=== PATIENT | female | born 1935 | race Hispanic/Latino ===

== ENCOUNTER 2017-11-24 20:56 | Inpatient (IN) | payer MEDICARE ==
[~2017-11-24] VITALS: Ht 144.8 cm; Wt 80.5 kg
[~2017-11-24 20:56] MED LIST: ASPI-1012 PO; CLOP75TA14 PO; ESOM20CA39 PO; SIMV40TA59 PO
[2017-11-24 21:30] LABS: APPEARANCE,URINE Cloudy (CLEAR); BILIRUBIN,URINE Negative (NEGATIVE); COLOR,URINE Yellow (YELLOW); GLUCOSE, URINE (UA) TRACE mg/dL (NEGATIVE); KETONES,URINE Trace mg/dL (NEGATIVE); LEUKOCYTE ESTERASE ,URINE Small (NEGATIVE); NITRATE,URINE Negative (NEGATIVE); OCCULT BLOOD,URINE Negative (NEGATIVE); PROTEIN,URINE Negative (NEGATIVE); UROBILINOGEN,URINE 0.2 mg/dL (0.2-1.0)
[2017-11-24 21:30] LABS: RAPID GROUP A STREP NEGATIVE (NEGATIVE)
[2017-11-24] MEDS ORDERED: SODIUM CHLORIDE 0.9% 500ML 500 ML IV ONE (21:32)
[2017-11-24 21:45] LABS: INR 0.94 (0.85-1.15); PARTIAL THROMBOPLASTIN TIME 29.3 SEC (26.3-35.5); PROTHROMBIN TIME 9.9 SEC (9.6-11.6)
[2017-11-24 21:50] LABS: BASOPHILS % (AUTO) 0.5 % (0.0-5.0); CREATININE 0.9 mg/dL (0.5-1.5); EOSINOPHILS % (AUTO) 0.9 % (0.0-8.0); HEMATOCRIT 39.7 % (36-48); LYMPHOCYTES % (AUTO) 16.7 % (21.0-51.0); MEAN CORPUSCULAR HEMOGLOBIN 29.4 pg (27.0-33.0); MEAN CORPUSCULAR VOLUME 89.1 fL (79-99); MONOCYTES % (AUTO) 5.6 % (3.0-13.0); NEUTROPHILS % (AUTO) 76.3 % (40.0-77.0); PLATELET COUNT (AUTO) 236 K/uL (130-400); POTASSIUM 3.6 mmol/L (3.5-5.1); RED BLOOD CELL COUNT(AUTO) 4.46 MIL/uL (4.00-5.50); RED CELL DISTRIBUTION WIDTH 14.8 % (11.0-15.5); WHITE BLOOD COUNT (AUTO) 9.4 K/uL (4.8-10.8)
[2017-11-24 21:54] LABS: ALBUMIN 3.9 g/dL (3.5-5.0); BILIRUBIN,TOTAL 0.3 mg/dL (0.2-1.0)
[2017-11-24 21:55] LABS: RBC,URINE None Seen /HPF (0-1)
[2017-11-24 21:56] LABS: AMORPHOUS SEDIMENT,UR Few /LPF (None Seen); BACTERIA,URINE Few /HPF (None Seen)
[2017-11-24 22:10] LABS: B-TYPE NATRIURETIC PEPTIDE 243 pg/mL (0-100)
[2017-11-24] MEDS ORDERED: AZITHROMYCIN 500MG+NS 250ML 250 ML IV ONE (23:00)
[2017-11-24] MEDS ORDERED: MEROPENEM 1 GM VIAL ONE (23:00)
[2017-11-24 23:13] LABS: ABG BASE EXCESS -0.5 mmol/L (-2.0-3.0); ABG HCO3 25.3 mmol/L (21.0-28.0); ABG OXYGEN SATURATION 93.1 % (95.0-99.0); ABG PCO2 46 mmHg (32-45)
[2017-11-25] VITALS (17 sets, daily range): BP systolic 97–151; BP diastolic 30–73
[2017-11-25] MEDS ORDERED: SODIUM CHLORIDE 0.9% 1000ML 1,000 ML IV SCH (04:45)
[2017-11-25] MEDS ORDERED: ONDANSETRON HCL MDV 20ML 2 MG/ML VIAL IVP PRN (04:45)
[2017-11-25] MEDS ORDERED: HYDRALAZINE HCL 20 MG/ML VIAL IV PRN (04:45)
[2017-11-25] MEDS ORDERED: CEFEPIME 2GM+NS 100ML 100 ML IV SCH (04:45)
[2017-11-25 05:56] LABS: HEMATOCRIT 40.1 % (36-48); MEAN CORPUSCULAR HEMOGLOBIN 29.7 pg (27.0-33.0); MEAN CORPUSCULAR HGB CONC 33.3 g/dL (32.0-36.0); MEAN CORPUSCULAR VOLUME 89.1 fL (79-99); PLATELET COUNT (AUTO) 222 K/uL (130-400); RED BLOOD CELL COUNT(AUTO) 4.51 MIL/uL (4.00-5.50); RED CELL DISTRIBUTION WIDTH 14.4 % (11.0-15.5); WHITE BLOOD COUNT (AUTO) 11.4 K/uL (4.8-10.8)
[2017-11-25] MEDS ORDERED: ASPI-555 PO (05:56)
[2017-11-25] MEDS ORDERED: ACETAMINOPHEN 650 MG SUPPOSITORY RC PRN ×2 (06:00→21:00)
[2017-11-25] MEDS ORDERED: DICLOFENAC SODIUM TP PRN (06:00)
[2017-11-25] MEDS ORDERED: APPL TP PRN (06:00)
[2017-11-25] MEDS ORDERED: ACETAMINOPHEN 325 MG TAB PO PRN (06:00)
[2017-11-25] MEDS ORDERED: ACET650S14 RC (06:03)
[2017-11-25] MEDS ORDERED: DICL2100G TP (06:03)
[2017-11-25] MEDS ORDERED: TYLENOL ARTHRITIS PO (06:03)
[2017-11-25 06:05] LABS: INR 0.93 (0.85-1.15); PROTHROMBIN TIME 9.8 SEC (9.6-11.6)
[2017-11-25 06:10] LABS: CREATININE 0.7 mg/dL (0.5-1.5); HEMOGLOBIN A1C 5.7 % (4.0-6.0); POTASSIUM 3.9 mmol/L (3.5-5.1)
[2017-11-25] MEDS: DOXYCYCLINE 100MG+NS 250ML 250 ML IV SCH ×2 (06:54→18:24)
[2017-11-25] MEDS ORDERED: CLOPIDOGREL BISULFATE 75 MG TAB PO SCH (09:00)
[2017-11-25] MEDS: FAMOTIDINE/PF 20 MG/2 ML VIAL IV SCH ×2 (09:00→21:00)
[2017-11-25] MEDS ORDERED: NICARDIPINE HCL 100 MG in SODIUM CHLORIDE 0.9% 60 ML IV PRN (12:00)
[2017-11-25] MEDS ORDERED: HYDRALAZINE HCL 20 MG/ML VIAL IM PRN (12:00)
[2017-11-25] MEDS ORDERED: IPRATROPIUM/ALBUTEROL SULFATE 3 ML SOLUTION IH PRN (14:00)
[2017-11-25] MEDS ORDERED: LIDOCAINE HCL-MPF 1% 2ML VIAL IVP PRN (14:00)
[2017-11-25] MEDS ORDERED: POTASSIUM CHLORIDE 10% ELIXIR 20 MEQ/15 ML UDCUP PO PRN (14:00)
[2017-11-25] MEDS ORDERED: POTASSIUM CHLORIDE 20 MEQ ERTAB PO PRN (14:00)
[2017-11-25] MEDS: SODIUM CHLORIDE 3% 500 ML SIVP SCH (14:46)
[2017-11-25] MEDS ORDERED: CEFEPIME HCL 2 GM VIAL IVP ONE (15:00)
[2017-11-25] MEDS: IPRATROPIUM/ALBUTEROL SULFATE 3 ML SOLUTION IH SCH ×3 (17:19→23:13)
[2017-11-25] MEDS ORDERED: CEFEPIME 1GM+NS 50ML 50 ML IV SCH (21:00)
[2017-11-25] MEDS: CEFEPIME HCL 1 GM VIAL IVP SCH ×2 (21:31→21:35)
[2017-11-25 23:20] LABS: APPEARANCE,URINE Clear (CLEAR); BILIRUBIN,URINE Negative (NEGATIVE); COLOR,URINE Yellow (YELLOW); GLUCOSE, URINE (UA) Negative (NEGATIVE); KETONES,URINE Trace mg/dL (NEGATIVE); LEUKOCYTE ESTERASE ,URINE Small (NEGATIVE); NITRATE,URINE Negative (NEGATIVE); OCCULT BLOOD,URINE Negative (NEGATIVE); PROTEIN,URINE Trace (NEGATIVE); UROBILINOGEN,URINE 0.2 mg/dL (0.2-1.0)
[2017-11-25 23:21] LABS: BACTERIA,URINE Rare /HPF (None Seen); MUCUS,URINE Few LPF (None Seen); RBC,URINE None Seen /HPF (0-1); SQUAMOUS EPITHELIAL CELL,UR Rare /HPF (0-2)
[2017-11-26] VITALS (23 sets, daily range): BP systolic 101–159; BP diastolic 36–85
[2017-11-26] MEDS ORDERED: SODIUM CHLORIDE 3% FOR INHALATION 4 ML/AMP VIAL.NEB IH ONE ×3 (01:50→11:34)
[2017-11-26] MEDS: SODIUM CHLORIDE 3% 500 ML SIVP SCH (03:34)
[2017-11-26 03:53] LABS: HEMATOCRIT 38.7 % (36-48); MEAN CORPUSCULAR HEMOGLOBIN 29.1 pg (27.0-33.0); MEAN CORPUSCULAR HGB CONC 33.3 g/dL (32.0-36.0); MEAN CORPUSCULAR VOLUME 87.3 fL (79-99); PLATELET COUNT (AUTO) 223 K/uL (130-400); RED BLOOD CELL COUNT(AUTO) 4.43 MIL/uL (4.00-5.50); RED CELL DISTRIBUTION WIDTH 14.6 % (11.0-15.5); WHITE BLOOD COUNT (AUTO) 18.4 K/uL (4.8-10.8)
[2017-11-26 04:03] LABS: POTASSIUM 3.4 mmol/L (3.5-5.1)
[2017-11-26] MEDS: DOXYCYCLINE 100MG+NS 250ML 250 ML IV SCH ×2 (06:04→18:01)
[2017-11-26] MEDS: IPRATROPIUM/ALBUTEROL SULFATE 3 ML SOLUTION IH SCH ×3 (06:21→19:20)
[2017-11-26] MEDS: PANTOPRAZOLE 40 MG/VIAL IV SCH ×2 (09:00→20:39)
[2017-11-26] MEDS: CEFEPIME HCL 1 GM VIAL IVP SCH ×2 (09:36→20:38)
[2017-11-26] MEDS: POTASSIUM CHLORIDE 20MEQ/100ML 100 ML IV PRN (11:46)
[2017-11-27] VITALS (17 sets, daily range): BP systolic 108–139; BP diastolic 37–80
[2017-11-27] MEDS: IPRATROPIUM/ALBUTEROL SULFATE 3 ML SOLUTION IH SCH ×4 (00:32→19:02)
[2017-11-27] MEDS: SODIUM CHLORIDE 3% 500 ML SIVP SCH ×3 (01:57→23:12)
[2017-11-27 03:43] LABS: BASOPHILS % (AUTO) 0.3 % (0.0-5.0); EOSINOPHILS % (AUTO) 0.3 % (0.0-8.0); HEMATOCRIT 34.5 % (36-48); LYMPHOCYTES % (AUTO) 6.1 % (21.0-51.0); MEAN CORPUSCULAR HEMOGLOBIN 29.7 pg (27.0-33.0); MEAN CORPUSCULAR HGB CONC 33.6 g/dL (32.0-36.0); MEAN CORPUSCULAR VOLUME 88.3 fL (79-99); MONOCYTES % (AUTO) 8.9 % (3.0-13.0); NEUTROPHILS % (AUTO) 84.4 % (40.0-77.0); PLATELET COUNT (AUTO) 174 K/uL (130-400); RED BLOOD CELL COUNT(AUTO) 3.91 MIL/uL (4.00-5.50); RED CELL DISTRIBUTION WIDTH 14.7 % (11.0-15.5); WHITE BLOOD COUNT (AUTO) 15.6 K/uL (4.8-10.8)
[2017-11-27 03:51] LABS: CREATININE 0.6 mg/dL (0.5-1.5); POTASSIUM 3.2 mmol/L (3.5-5.1)
[2017-11-27] MEDS: POTASSIUM CHLORIDE 20MEQ/100ML 100 ML IV PRN (03:58)
[2017-11-27] MEDS: DOXYCYCLINE 100MG+NS 250ML 250 ML IV SCH ×2 (05:33→18:06)
[2017-11-27] MEDS: PANTOPRAZOLE 40 MG/VIAL IV SCH ×2 (09:35→20:15)
[2017-11-27] MEDS: CEFEPIME HCL 1 GM VIAL IVP SCH ×2 (09:35→20:15)
[2017-11-28] MEDS: IPRATROPIUM/ALBUTEROL SULFATE 3 ML SOLUTION IH SCH ×2 (00:38→06:35)
[2017-11-28 03:29] VITALS: BP 110/47
[2017-11-28 03:44] LABS: BASOPHILS % (AUTO) 0.5 % (0.0-5.0); EOSINOPHILS % (AUTO) 1.5 % (0.0-8.0); HEMATOCRIT 34.5 % (36-48); LYMPHOCYTES % (AUTO) 9.9 % (21.0-51.0); MEAN CORPUSCULAR HEMOGLOBIN 28.5 pg (27.0-33.0); MEAN CORPUSCULAR HGB CONC 32.6 g/dL (32.0-36.0); MEAN CORPUSCULAR VOLUME 87.6 fL (79-99); MONOCYTES % (AUTO) 8.9 % (3.0-13.0); NEUTROPHILS % (AUTO) 79.2 % (40.0-77.0); PLATELET COUNT (AUTO) 166 K/uL (130-400); RED BLOOD CELL COUNT(AUTO) 3.94 MIL/uL (4.00-5.50); RED CELL DISTRIBUTION WIDTH 14.7 % (11.0-15.5); WHITE BLOOD COUNT (AUTO) 14.5 K/uL (4.8-10.8)
[2017-11-28 03:57] LABS: CREATININE 0.7 mg/dL (0.5-1.5); POTASSIUM 3.3 mmol/L (3.5-5.1)
[2017-11-28] MEDS: POTASSIUM CHLORIDE 20MEQ/100ML 100 ML IV PRN ×2 (05:06→09:10)
[2017-11-28] MEDS: DOXYCYCLINE 100MG+NS 250ML 250 ML IV SCH ×2 (05:34→18:11)
[2017-11-28 07:54] VITALS: BP 130/87
[2017-11-28] MEDS: CEFEPIME HCL 1 GM VIAL IVP SCH ×2 (09:10→21:57)
[2017-11-28] MEDS: PANTOPRAZOLE 40 MG/VIAL IV SCH (09:10)
[2017-11-28 11:30] VITALS: BP 136/63
[2017-11-28 16:00] VITALS: BP 127/67
[2017-11-28 19:27] VITALS: BP 127/68
[2017-11-28] MEDS: IPRATROPIUM/ALBUTEROL SULFATE 3 ML SOLUTION IH PRN (19:38)
[2017-11-28 23:50] VITALS: BP 125/43
[2017-11-29] MEDS: IPRATROPIUM/ALBUTEROL SULFATE 3 ML SOLUTION IH PRN ×3 (00:51→11:07)
[2017-11-29 04:09] VITALS: BP 112/54
[2017-11-29] MEDS: DOXYCYCLINE 100MG+NS 250ML 250 ML IV SCH (05:46)
[2017-11-29 07:00] VITALS: BP 109/51
[2017-11-29] MEDS ORDERED: PANTOPRAZOLE SODIUM 40 MG TABLET.DR PO SCH (07:30)
[2017-11-29 11:00] VITALS: BP 115/63
[2017-11-29] MEDS ORDERED: DOXYCYCLINE HYCLATE 100 MG TABLET PO SCH (21:00)
== END 2017-11-29 16:15 | DRG 64 ==
LOC: EDH 20:56 → EDHIP 11-25 02:20 → 2AH 11-25 03:10 → 2BH 11-25 11:35 → 2AH 11-28 11:28
PROVIDERS: ADMIT Internal Medicine Nephrology; ATTEND Internal Medicine Nephrology
DX: I62.9 Nontraumatic intracranial hemorrhage, unspecified (principal); J18.9 Pneumonia, unspecified organism; I63.9 Cerebral infarction, unspecified; G93.6 Cerebral edema; J18.1 Lobar pneumonia, unspecified organism; E46 Unspecified protein-calorie malnutrition; I11.0 Hypertensive heart disease with heart failure; L03.115 Cellulitis of right lower limb; R13.12 Dysphagia, oropharyngeal phase; I50.9 Heart failure, unspecified; L03.116 Cellulitis of left lower limb; N39.0 Urinary tract infection, site not specified; F03.90 Unspecified dementia, unspecified severity, without behavioral disturbance, psychotic disturbance, mood disturbance, and anxiety; Z66 Do not resuscitate; R27.0 Ataxia, unspecified; I25.10 Atherosclerotic heart disease of native coronary artery without angina pectoris; Y95 Nosocomial condition; I61.4 Nontraumatic intracerebral hemorrhage in cerebellum; I25.2 Old myocardial infarction; Z95.5 Presence of coronary angioplasty implant and graft; Z68.38 Body mass index [BMI] 38.0-38.9, adult; Z74.01 Bed confinement status
CPT/HCPCS: 36415; 36600; 70450; 70551; 71045; 80048; 80053; 80061; 80339; 81001; 82803; 82948; 83036; 83605; 83690; 83880; 84132; 84295; 84484; 85025; 85027; 85610; 85730; 87040; 87071; 87088; 87205; 87804; 87880; 92610; 93306; 93970; 94640; 94664; 99291; A4218; C9113; J0456; J0692; J2185; J3480; J3490; J7030; J7040

== ENCOUNTER 2019-04-09 21:22 | Emergency (ER) | payer MEDICARE ==
[~2019-04-09 21:22] MED LIST changes: +ACET650S14 RC; -ASPI-1012 PO; -CLOP75TA14 PO; +DICL2100G TP; -ESOM20CA39 PO; -SIMV40TA59 PO
[2019-04-09 22:18] LABS: BASOPHILS % (AUTO) 0.9 % (0.0-5.0); EOSINOPHILS % (AUTO) 3.1 % (0.0-8.0); HEMATOCRIT 31.5 % (36-48); LYMPHOCYTES % (AUTO) 19.5 % (21.0-51.0); MEAN CORPUSCULAR HEMOGLOBIN 29.6 pg (27.0-33.0); MEAN CORPUSCULAR HGB CONC 32.7 g/dL (32.0-36.0); MEAN CORPUSCULAR VOLUME 90.5 fL (79-99); MONOCYTES % (AUTO) 10.1 % (3.0-13.0); NEUTROPHILS % (AUTO) 66.4 % (40.0-77.0); NUCLEATED RED BLOOD CELLS 0.2 % (0.0-0.19); PLATELET COUNT (AUTO) 219 K/uL (130-400); RED BLOOD CELL COUNT(AUTO) 3.48 MIL/uL (4.00-5.50); RED CELL DISTRIBUTION WIDTH 14.7 % (11.0-15.5); WHITE BLOOD COUNT (AUTO) 8.4 K/uL (4.8-10.8)
[2019-04-09 22:28] LABS: INR 0.89 (0.85-1.15); PARTIAL THROMBOPLASTIN TIME 28.9 SEC (26.3-35.5); PROTHROMBIN TIME 9.4 SEC (9.6-11.6)
[2019-04-09 22:30] LABS: CREATININE 0.7 mg/dL (0.5-1.5); POTASSIUM 4.1 mmol/L (3.5-5.1)
[2019-04-09 22:35] LABS: ALBUMIN 2.7 g/dL (3.5-5.0); BILIRUBIN,TOTAL 0.8 mg/dL (0.2-1.0); TOTAL PROTEIN, SERUM 6.5 g/dL (6.0-8.3)
[2019-04-09 23:27] LABS: APPEARANCE,URINE Cloudy (CLEAR); BILIRUBIN,URINE Negative (NEGATIVE); COLOR,URINE Yellow (YELLOW); GLUCOSE, URINE (UA) Negative (NEGATIVE); KETONES,URINE Negative (NEGATIVE); LEUKOCYTE ESTERASE ,URINE Trace (NEGATIVE); NITRATE,URINE Negative (NEGATIVE); OCCULT BLOOD,URINE Negative (NEGATIVE); PH,URINE 7.5 (5.0-8.0); PROTEIN,URINE Negative (NEGATIVE)
[2019-04-09 23:37] LABS: BACTERIA,URINE None Seen /HPF (None Seen); RBC,URINE None Seen /HPF (0-1); WBC,URINE 0-1 /HPF (0-1)
[2019-04-09 23:38] LABS: AMORPHOUS SEDIMENT,UR Rare /LPF (None Seen); SQUAMOUS EPITHELIAL CELL,UR Few /HPF (0-2)
[2019-04-13] MEDS ORDERED: CLOT15CR62 TP (02:34)
[2019-04-13] MEDS ORDERED: RANI-643 PO (02:34)
== END 2019-04-10 02:12 | disposition home or self-care (01) ==
LOC: EDH 21:22
DX: S42.291A Other displaced fracture of upper end of right humerus, initial encounter for closed fracture (principal); I10 Essential (primary) hypertension; E78.5 Hyperlipidemia, unspecified; K21.9 Gastro-esophageal reflux disease without esophagitis; Z79.899 Other long term (current) drug therapy; W18.39XA Other fall on same level, initial encounter; Y93.89 Activity, other specified; Y92.89 Other specified places as the place of occurrence of the external cause; Y99.8 Other external cause status
CPT/HCPCS: 36415; 70450; 73020; 73060; 73090; 80053; 81001; 82550; 83690; 84484; 85025; 85610; 85730; 93005

== ENCOUNTER 2019-05-17 07:33 | Day surgery (SDC) | payer MEDICARE ==
[2019-05-15 10:11] VITALS: BP 118/74
[2019-05-15 10:29] LABS: BASOPHILS % (AUTO) 0.9 % (0.0-5.0); EOSINOPHILS % (AUTO) 3.2 % (0.0-8.0); HEMATOCRIT 39.4 % (36-48); LYMPHOCYTES % (AUTO) 28.8 % (21.0-51.0); MEAN CORPUSCULAR HEMOGLOBIN 29.7 pg (27.0-33.0); MEAN CORPUSCULAR HGB CONC 32.5 g/dL (32.0-36.0); MEAN CORPUSCULAR VOLUME 91.5 fL (79-99); MONOCYTES % (AUTO) 11.2 % (3.0-13.0); NEUTROPHILS % (AUTO) 55.9 % (40.0-77.0); NUCLEATED RED BLOOD CELLS 0.1 % (0.0-0.19); PLATELET COUNT (AUTO) 260 K/uL (130-400); RED BLOOD CELL COUNT(AUTO) 4.31 MIL/uL (4.00-5.50); RED CELL DISTRIBUTION WIDTH 16.2 % (11.0-15.5)
[2019-05-15 10:31] LABS: CREATININE 0.9 mg/dL (0.5-1.5); POTASSIUM 4.2 mmol/L (3.5-5.1)
[2019-05-15 10:35] LABS: INR 1.01 (0.85-1.15); PARTIAL THROMBOPLASTIN TIME 35.1 SEC (26.3-35.5); PROTHROMBIN TIME 10.6 SEC (9.6-11.6)
--- NOTE | 2019-05-15 11:55 | NUR ---
CALLED [facility] AND SPOKE WITH PATIENT'S NURSE (RUDOLPH MENDOZA LVN). INFORMED HER THAT PATIENT WILL ONLY NEED TO TAKE ELIQUIS, AMIODARONE, AND LASIX ON THE MORNING OF HER PROCEDURE. NURSE VERBALIZED UNDERSTANDING.
[2019-05-17] VITALS (19 sets, daily range): BP systolic 94–120; BP diastolic 38–68
[~2019-05-17 07:33] MED LIST changes: +ACET325T51 PO; -ACET650S14 RC; +AMIO200T5 PO; +APIX5TAB PO; +ASCO500C18 PO; +BALS60OI TP; +CLOT15CR62 TP; +DOCU100C33 PO; +FERR324T10 PO; +FURO40TA7 PO; +HYDR-2132 PO; +NYST100P2 MC; +NYST1POW4 MC; +POTA-79 PO; +RANI-643 PO; +SODIUM CHLORIDE 0.9% 1000ML 1,000 ML IV SCH
--- NOTE | 2019-05-17 07:40 | NUR ---
PRE-PROCEDURE RECEIVED FROM [facility] VIA W/C AWAKE IN NO ACUTE DISTRESS TO ROOM 15 FOR SCHEDULED LHC ACCOMPANIED BY SON. CONNECTED TO CONTINUOUS CARDIOPULMONARY MONITORING. HX: DEMENTIA. PT WITH MEPILEX DRESSING TO RIGHT FOOT. PER SON PT HIT HER FOOT. QUARTER SIZE CLOSED WOUND TO RIGHT FOOT W/O DRAINAGE AT PRESENT TIME. PER SON PT FELL AND FX RIGHT ARM A COUPLE WEEKS AGO AND HAD SURGERY BY DR. PLUMMER. PTS RIGHT ARM IN SLING. HEALED INCISION TO RIGHT SHOULDER EXTENDING TO PROXIMAL RIGHT ARM. EDUCATED TO CALL FOR ASSISTANCE TO GET OUT OF BED. SIDE RAILS UP X2, BED IN LOWEST POSITION, AND CALL LIGHT W/IN REACH.
--- NOTE | 2019-05-17 07:42 | NUR ---
ORDERS EKG COMPLETED ORDERED.
--- NOTE | 2019-05-17 09:24 | NUR ---
EDUCATION DR. JAMES DISCUSSED PLAN W/ PT AND SON AT BEDSIDE. SON VERBALIZED UNDERSTANDING.
[2019-05-17] MEDS ORDERED: PROPOFOL 10 MG/ML 20ML VIAL IV ONE (09:27)
--- NOTE | 2019-05-17 09:29 | NUR ---
PROCEDURE DR. JAMES, Mathieu MARIO, Chely HENRY, AND Lloyd SCHROEDER AT BEDSIDE FOR SCHEDULED CARDIOVERSION W/ ANESTHESIA. TIME OUT CALLED.
--- NOTE | 2019-05-17 09:38 | NUR ---
POST-PROCEDURE CARDIOVERSION SUCCESSFUL ON FIRST ATTEMPT WITH [id number] ([id number]). TOLERATED W/O COMPLICATIONS.
--- NOTE | 2019-05-17 09:44 | NUR ---
POST EKG POST EKG REVIEWED BY DR. JAMES. NO NEW ORDERS RECEIVED.
--- NOTE | 2019-05-17 11:00 | NUR ---
DIET Ate 75% of breakfast.
--- NOTE | 2019-05-17 11:19 | NUR ---
DISCHARGE INSTRUCTIONS DAY PT DISCHARGE INSTRUCTION SHEET, MED REC, AND PT EDUCATED REVIEWED WITH PT AND SON. FORMS SIGNED BY SON DUE TO PTS HISTORY OF DEMENTICA. OPPORTUNITY GIVEN TO ASK QUESTIONS. NO QUESTIONS OR CONCERNS VOICED.
--- NOTE | 2019-05-17 11:30 | NUR ---
REPORT REPORT GIVEN TO YAN AT [facility] USING SBAR. VERBALIZED UNDERSTANDING.
--- NOTE | 2019-05-17 11:40 | NUR ---
DISCHARGE DISCHARGED VIA W/C ACCOMPANIED BY JADIEL RENETTA VIA [facility]. AWAKE IN NO ACUTE DISTRESS.
== END 2019-05-17 11:40 ==
LOC: DAH 07:33
PROVIDERS: ATTEND Internal Medicine Cardiovascular Disease
DX: I48.1 Persistent atrial fibrillation (principal); I35.0 Nonrheumatic aortic (valve) stenosis; I25.10 Atherosclerotic heart disease of native coronary artery without angina pectoris; K21.9 Gastro-esophageal reflux disease without esophagitis; Z86.73 Personal history of transient ischemic attack (TIA), and cerebral infarction without residual deficits; Z79.01 Long term (current) use of anticoagulants; Z79.899 Other long term (current) drug therapy; Z95.818 Presence of other cardiac implants and grafts; Z98.890 Other specified postprocedural states
CPT/HCPCS: 36415; 80048; 85025; 85610; 85730; 92960; 93005 ×2; A4215 ×2; A4216 ×2; A4221 ×2; A4222 ×2; A4223 ×6; A4606 ×2; J2704; 99157